=== PATIENT | female | born 1980 | race Two or more races ===

== ENCOUNTER 2023-06-30 15:07 | Emergency (ER) | payer OTHER ==
[~2023-06-30] VITALS: Ht 160 cm; Wt 59.0 kg
[2023-06-30 15:29] VITALS: BP 108/75; TEMP 98
[2023-06-30] MEDS ORDERED: AMOX500C2 PO (16:06)
[2023-06-30 16:16] VITALS: O2SAT 98
== END 2023-06-30 16:17 | disposition home or self-care (01) ==
LOC: ER 15:15
DX: J02.9 Acute pharyngitis, unspecified (principal); R09.81 Nasal congestion; R59.1 Generalized enlarged lymph nodes; Z88.2 Allergy status to sulfonamides; Z20.822 Contact with and (suspected) exposure to COVID-19
CPT/HCPCS: 86403-TC